=== PATIENT | female | born 1960 | race African-American/Black ===

== ENCOUNTER 2024-09-05 13:26 | Emergency (ER) | payer BC ==
[2024-09-05 13:34] VITALS: TEMP 98; BMI 29.2
[2024-09-05 13:56] LABS: HEMATOCRIT 31.7 % (32.4-45.2); HEMOGLOBIN 9.4 G/dL (10.7-15.3); MCHC 29.6 g/dl (32.0-36.0); MEAN CELL VOLUME 84.4 fl (80-96); MEAN PLT VOLUME 7.9 fl (7.5-11.1); PLATELET COUNT 457.3 10^3/uL (134-434); RBC 3.75 10^6/uL (3.60-5.2); RDW 16.1 % (11.6-15.6); WHITE BLOOD COUNT 12.4 10^3/uL (4.0-10.8)
[2024-09-05 14:19] LABS: ALBUMIN 3.5 g/dl (3.4-5.0); ALK PHOS 59 U/L (45-117); ANION GAP 7 mmol/L (4-13); BILIRUBIN,TOTAL 0.2 mg/dl (0.2-1); CHLORIDE 98 mmol/L (98-107); CO2 28 mmol/L (21-32); CREATININE 0.7 mg/dl (0.6-1.3); GLUCOSE,RANDOM 95 mg/dl (74-106); POTASSIUM 4.5 mmol/L (3.5-5.1); SGOT/AST 18 U/L (15-37); SGPT/ALT 8 U/L (7-52); SODIUM 133 mmol/L (136-145)
[2024-09-05 14:33] LABS: PLATELET ESTIMATE SLT INCREASE
[2024-09-05 15:14] LABS: METHADONE, UR NEGATIVE (NEGATIVE); URINE BARBITURATES NEGATIVE (NEGATIVE)
[2024-09-05 15:15] LABS: PHENCYCLIDINE,URINE NEGATIVE (NEGATIVE)
[2024-09-05 15:30] LABS: COCAINE, UR NEGATIVE (NEGATIVE); OPIATES, URI NEGATIVE (NEGATIVE); URINE AMPHETAMINES NEGATIVE (NEGATIVE); URINE BENZODIAZEPINES NEGATIVE (NEGATIVE)
[2024-09-05 17:22] VITALS: RESP 16
[2024-09-05 19:31] VITALS: BP 112/58; PULSE 79
== END 2024-09-05 19:15 | disposition home or self-care (01) ==
LOC: FER 13:26
DX: D64.9 Anemia, unspecified (principal); R55 Syncope and collapse; R00.2 Palpitations; Z20.822 Contact with and (suspected) exposure to COVID-19
CPT/HCPCS: 0241U-QW; 36415; 71045-TC-FY; 74176-TC; 80053; 80307; 81003; 81015; 84484; 85027; 93005; 99285-25

== ENCOUNTER 2024-09-23 16:46 | Emergency (ER) | payer BC ==
[2024-09-23 17:00] VITALS: BP 111/59; PULSE 93; RESP 17; TEMP 98.9; BMI 28.3
[2024-09-23] MEDS ORDERED: ACETAMINOPHEN INJECTION 100 ML ONE (18:42)
[2024-09-23 18:47] LABS: BASO % 0.8 % (0-2.0); EOS % 0.2 % (0-4.5); HEMOGLOBIN 7.1 GM/dL (10.7-15.3); LYMPH % 17.4 % (8-40); MCH 23.5 pg (25.7-33.7); MCHC 30.7 g/dl (32.0-36.0); MEAN CELL VOLUME 76.4 fl (80-96); MEAN PLT VOLUME 7.2 fl (7.5-11.1); NEUT % 71.6 % (42.8-82.8); PLATELET COUNT 437 10^3/uL (134-434); RBC 3.01 M/mm3 (3.60-5.2); RDW 16.4 % (11.6-15.6); WHITE BLOOD COUNT 9.9 K/mm3 (4.0-10.0)
[2024-09-23] MEDS: ACETAMINOPHEN 1000 MG/100 ML BAG IVPB ONE (18:53)
[2024-09-23 19:08] LABS: URINE APPEARANCE CLEAR; URINE BILIRUBIN NEGATIVE (NEGATIVE); URINE COLOR YELLOW; URINE GLUCOSE (UA) NEGATIVE (NEGATIVE); URINE KETONE NEGATIVE (NEGATIVE); URINE LEUK ESTERASE 3+ (NEGATIVE); URINE NITRITE NEGATIVE (NEGATIVE); URINE PROTEIN NEGATIVE (NEGATIVE); URINE UROBILINOGEN 0.2 mg/dL (0.2-1.0)
[2024-09-23 19:08] LABS: POTASSIUM 4.3 mmol/L (3.5-5.1)
[2024-09-23 19:10] LABS: CALCIUM 8.7 mg/dL (8.5-10.1)
[2024-09-23 19:11] LABS: ALBUMIN 2.1 g/dl (3.4-5.0); BLOOD UREA NITROGEN 10.4 mg/dL (7-18)
[2024-09-23 19:16] LABS: BILIRUBIN,TOTAL 0.2 mg/dL (0.2-1); TOT PROT 6.6 g/dl (6.4-8.2)
[2024-09-23] MEDS ORDERED: LIDOCAINE 5% TOPICAL PATCH ONE (20:03)
[2024-09-23 20:06] LABS: HIV INTERPRETATION NEGATIVE (NEGATIVE)
[2024-09-23] MEDS: LIDOCAINE 5% TOPICAL PATCH TP ONE (20:07)
[2024-09-23] MEDS ORDERED: LIDOCAINE PATCH REMOVAL MC SCH (22:00)
[2024-09-23 23:01] LABS: EPI CELLS 32.7 /uL (0-25.1); HYALINE CASTS 0.41 /uL (0-3.1); URINE BACTERIA 83.1 /uL (0-1359); URINE RBC 335.4 /uL (0-23.9); URINE WBC 203.2 /uL (0-25.8)
== END 2024-09-23 20:36 | disposition home or self-care (01) ==
LOC: JER 16:46
PROC: 3E033NZ Introduction of Analgesics, Hypnotics, Sedatives into Peripheral Vein, Percutaneous Approach (ICD-10-PCS; principal; 2024-09-23)
DX: N39.0 Urinary tract infection, site not specified (principal); M54.50 Low back pain, unspecified
CPT/HCPCS: 36415; 80053; 81003; 85025; 86803; 87086; 87186; 87389; 99284-25; J0131